=== PATIENT | male | born 1995 | race African-American/Black ===

== ENCOUNTER 2018-02-02 03:47 | Emergency (ER) | payer SELFPAY ==
[2018-02-02] MEDS ORDERED: OCTYL 2-CYANOACRYLATE 1 EACH TP ONE (04:14)
== END 2018-02-02 04:30 | disposition home or self-care (01) ==
LOC: EDBD 03:47 → EDH 03:47
DX: S01.01XA Laceration without foreign body of scalp, initial encounter (principal); W50.0XXA Accidental hit or strike by another person, initial encounter; Y93.89 Activity, other specified; Y92.511 Restaurant or cafe as the place of occurrence of the external cause; Y99.8 Other external cause status
CPT/HCPCS: 12001